=== PATIENT | female | born 1965 | race Caucasian/White ===

== ENCOUNTER 2017-05-18 19:09 | Emergency (ER) | payer MEDICAID ==
[2017-05-18] MEDS ORDERED: PROMETHAZINE HCL 25 MG in 0.9 % SODIUM CHLORIDE 100ML 100 ML IVPB ONE (19:12)
[2017-05-18] MEDS ORDERED: 0.9 % SODIUM CHLORIDE 1000ML 1,000 ML IV SCH (19:15)
--- NOTE | 2017-05-18 19:17 | Emergency Department Record ---
History of Present Illness - General Chief Complaint: Overdose Stated Complaint: OVERDOSE Time Seen by Provider: 05/18/17 19:12 Source: Patient, EMS Mode of Arrival: EMS Limitations: No limitations - History of Present Illness Initial Comments: 51 yo female presents to ED for evaluation following heroin overdose. Patient was found to have shallow respirations after her son called EMS, was given 4 mg of Narcan prior to arrival and awoke with normal respirations. Patient reports chronic back pain and nausea symptoms currently. MD Complaint: Accidental overdose Onset/Timin -: Minutes(s) - [place] Coma Scale Eye Response: (4) Open spontaneously Motor Response: (6) Obeys commands Verbal Response: (5) Oriented [place] Total: 15 Substance Ingested: Heroin - Detail How Overdose Was Discovered: Family/friend present at time Context: Accidental Overdose: Wanted to get high Associated Symptoms: Nausea/vomiting Treatments Prior to Arrival: Narcan - Related Data Previous Rx's Medication Instructions Recorded Alprazolam [Xanax] 1 mg PO BID #5 tab 09/21/15 Hydrocodone/Acetaminophen [[place] 1 tab PO BID PRN #5 tab 09/21/15 10mg/325mg] Allergies Allergy/AdvReac Type Severity Reaction Status Date / Time butorphanol tartrate Allergy Intermediate PT UNSURE Verified 09/21/15 16:23 [From Stadol] OF REACTION codeine Allergy Intermediate PT UNSURE Verified 09/21/15 16:23 OF REACTION nalbuphine HCl [From Nubain] Allergy Intermediate PT UNSURE Verified 09/21/15 16 :23 OF REACTION Penicillins Allergy Intermediate PT UNSURE Verified 09/21/15 16:23 OF REACTION prochlorperazine Allergy Intermediate PT UNSURE Verified 09/21/15 16:23 [From Compazine] OF REACTION prochlorperazine edisylate Allergy Intermediate PT UNSURE Verified 09/21/15 16: 23 [From Compazine] OF REACTION prochlorperazine maleate Allergy Intermediate PT UNSURE Verified 09/21/15 16:23 [From Compazine] OF REACTION sumatriptan [From Imitrex] Allergy Intermediate PT UNSURE Verified 09/21/15 16: 23 OF REACTION sumatriptan succinate Allergy Intermediate PT UNSURE Verified 09/21/15 16:23 [From Imitrex] OF REACTION Review of Systems Constitutional: Denies: Chills, Fever, Malaise, Night sweats Eyes: Denies: Eye discharge, Eye pain ENT: Denies: Congestion, Ear pain, Epistaxis Respiratory: Denies: Cough, Dyspnea Cardiovascular: Denies: Chest pain, Dyspnea on exertion Endocrine: Denies: Fatigue, Heat or cold intolerance Gastrointestinal: Reports: Nausea. Denies: Constipation, Vomiting Genitourinary: Denies: Incontinence, Retention Musculoskeletal: Reports: Back pain. 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" - GI Hx GI Disorders: No - Hx Genitourinary Disorders: No - ENDOCRINE Hx Endocrine Disorders: No - MUSCULOSKELETAL Hx Musculoskeletal Disorders: Yes Hx Arthritis: Yes Comment:: DDD, neuropathy - PSYCH Hx Psych Problems: Yes Hx Anxiety: Yes - HEMATOLOGY/ONCOLOGY Hx Hematology/Oncology Disorders: No Family Medical History Hx Heart Disease: Father, Brother/Sister Physical Exam - General General Appearance: Alert, Oriented x3, Cooperative, No acute distress Limitations: No limitations - Head Head exam: Atraumatic, Normocephalic, Normal inspection Head exam detail: negative: Abrasion, Contusion, Kay's sign, General tenderness, Hematoma, Laceration - Eye Eye exam: Normal appearance. negative: Conjunctival injection, Periorbital swelling, Periorbital tenderness, Scleral icterus - ENT Ear exam: negative: Auricular hematoma, Auricular trauma Nasal Exam: negative: Active bleeding, Discharge, Dried blood, Foreign body Mouth exam: negative: Drooling, Laceration, Muffled voice, Tongue elevation Teeth exam: Other (All teeth removed previously) - Neck Neck exam: Normal inspection. negative: Meningismus, Tenderness - Respiratory Respiratory exam: Normal lung sounds bilaterally. negative: Rales, Respiratory distress, Rhonchi, Stridor - Cardiovascular Cardiovascular Exam: Regular rate, Normal rhythm, Normal heart sounds - GI/Abdominal GI/Abdominal exam: Soft. negative: Rebound, Rigid, Tenderness - Rectal Rectal exam: Deferred - exam: Deferred - Extremities Extremities exam: Normal inspection. negative: Pedal edema, Tenderness - Back Back exam: Denies: CVA tenderness (R), CVA tenderness (L) - Neurological Neurological exam: Alert, Normal gait, Oriented X3 - Psychiatric Psychiatric exam: Flat affect, Normal mood - Skin Skin exam: Normal color. negative: Abrasion Type of lesion: negative: abrasion Course - Reevaluation(s) Reevaluation #1: 05/18/17 19:49 Patient's family has arrived to the bedside, patient reports that she wants to leave AMA. 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 Benefit of further observation to exclude a recurrence of respiratory depression and was discussed with the patient and her family members. Patient verbalizes understanding of the benefit of further observation and the risk of leaving AMA , is AOx3 and has the capacity to make rational decisions. All risks and benefits were reviewed with the patient with family members at the bedside, and they are in agreement with the patient's decision to leave AMA as well. Patient will be released per her choice with family members. Medical Decision Making - Lab Data Result diagrams: 05/18/17 19:20 05/18/17 19:20 Disposition Disposition: Discharge Clinical Impression: Heroin overdose Qualifiers: Encounter type: initial encounter Injury intent: accidental or unintentional Qualified Code(s): T40.1X1A - Poisoning by heroin, accidental (unintentional), initial encounter Disposition: Against Medical Advice Condition: (3) Guarded Instructions: Narcotic Abuse (ED) Additional Instructions: Return to ED if your symptoms worsen or if you have any concerns. Do not use heroin as the drug may result in . Follow-up with your family doctor in 1-3 days without fail. Forms: Patient Portal Access Time of Disposition: 19:58 Quality - Quality Measures Quality Measures: N/A - Blood Pressure Screening Does Patient Have Any of the Following: No Blood Pressure Classification: Pre-Hypertensive BP Reading Systolic Measurement: 149 Diastolic Measurement: 85 Screening for High Blood Pressure: < Pre-Hypertensive BP, F/U Documented > [ G8950] Pre-Hypertensive Follow-up Interventions: Referral to alternative/primary care provider.
[2017-05-18 19:30] LABS: BASO % 0.2 % (0-6); EOS % 2.2 % (0-6); GRAN % 55.8 % (47-80); HEMATOCRIT 41.1 % (35.0-47.0); HEMOGLOBIN 13.9 gm/dl (11.6-16.0); LYMPH % 35.1 % (16-45); MEAN CELL VOLUME 93.6 fl (81-97); MEAN CORPUSCULAR HEMOGLOBIN 31.7 pg (27-33); MEAN CORPUSCULAR HGB CONC 33.8 g/dl (32-36); MEAN PLATELET VOLUME 9.3 fl (7.4-10.4); MONO % 6.7 % (0-9); PLATELET COUNT 290 K/uL (130-400); RED BLOOD COUNT 4.39 M/uL (3.80-5.40); RED CELL DISTRIBUTION WIDTH 14.5 % (11.5-14.5); WHITE BLOOD COUNT W/O DIFF 8.6 K/uL (4.2-12.2)
[2017-05-18 19:38] LABS: BLOOD UREA NITROGEN 16 mg/dL (6-20); CREATININE 0.7 mg/dL (0.5-0.9); EST GLOMERULAR FILTRATION RATE > 60 mL/min
[2017-05-18 19:41] LABS: GLUCOSE,RANDOM 113 mg/dL (74-109)
[2017-05-18 19:43] LABS: ALT/SGPT 18 U/L (<33)
[2017-05-18 19:44] LABS: ALB/GLOB RATIO 1.3 (1.1-1.8); ALKALINE PHOSPHATASE 66 U/L (35-104); AST/SGOT 19 U/L (10.0-35.0)
== END 2017-05-18 20:15 | disposition left against medical advice (07) ==
LOC: ER 19:09
DX: T40.1X1A Poisoning by heroin, accidental (unintentional), initial encounter (principal); R11.0 Nausea; I10 Essential (primary) hypertension; F17.210 Nicotine dependence, cigarettes, uncomplicated
CPT/HCPCS: 80053; 85025; 96365; 99284; J2550; J7030

== ENCOUNTER 2017-05-31 17:02 | Emergency (ER) | payer MEDICAID ==
[2017-05-31] MEDS ORDERED: KETOROLAC 30 MG/ML VIAL IVP ONE (17:48)
[2017-05-31] MEDS ORDERED: HYDROCODONE/APAP 7.5/325MG TABLET PO ONE (17:48)
[2017-05-31] MEDS ORDERED: ACETAMINOPHEN 1,000 MG/100 ML BTL IVPB ONE (17:48)
[2017-05-31] MEDS ORDERED: ALPRAZOLAM 0.25 MG TABLET PO ONE (17:58)
--- NOTE | 2017-05-31 17:58 | Emergency Department Record ---
History of Present Illness - General Chief Complaint: Chest Pain Stated Complaint: CHEST /ABDOMINAL PAIN Time Seen by Provider: 05/31/17 17:44 Source: Patient Mode of Arrival: Ambulatory Limitations: No limitations - History of Present Illness Initial Comments: 51 yo female presents with diffuse pain over the chest and back that is worsening since having CPR recently for a drug overdose. The patient was using recreational heroin when she stopped breathing. She received CPR. She reports severe pain since that time. No syncope. No other new pains or injuries. She has pain with any moving or breathing. No cough, hemoptysis, or neck pain. MD Complaint: Chest pain Onset/Timin -: Days(s) Onset: Other Pain Location: Substernal, Left chest Severity: Moderate Severity scale (1-10): 10 Quality: Aching, Heaviness Consistency: Constant, Getting worse Improves With: Rest Worsens With: Inspiration, Movement, Palpation Context: Trauma/injury - Related Data Previous Rx's Medication Instructions Recorded Alprazolam [Xanax] 1 mg PO BID #5 tab 09/21/15 Allergies Allergy/AdvReac Type Severity Reaction Status Date / Time butorphanol tartrate Allergy Intermediate PT UNSURE Verified 05/31/17 17:32 [From Stadol] OF REACTION codeine Allergy Intermediate PT UNSURE Verified 05/31/17 17:32 OF REACTION nalbuphine HCl [From Nubain] Allergy Intermediate PT UNSURE Verified 05/31/17 17 :32 OF REACTION Penicillins Allergy Intermediate PT UNSURE Verified 05/31/17 17:32 OF REACTION prochlorperazine Allergy Intermediate PT UNSURE Verified 05/31/17 17:32 [From Compazine] OF REACTION prochlorperazine edisylate Allergy Intermediate PT UNSURE Verified 05/31/17 17: 32 [From Compazine] OF REACTION prochlorperazine maleate Allergy Intermediate PT UNSURE Verified 05/31/17 17:32 [From Compazine] OF REACTION sumatriptan [From Imitrex] Allergy Intermediate PT UNSURE Verified 05/31/17 17: 32 OF REACTION sumatriptan succinate Allergy Intermediate PT UNSURE Verified 05/31/17 17:32 [From Imitrex] OF REACTION ketorolac [From Toradol] Allergy HYPERSENSIT Verified 05/31/17 17:32 IV[facility] Travel Screening - Travel/Exposure Within Last 30 Days Have you traveled within the last 30 days?: No - Travel/Exposure Within Last Year Have you traveled outside the [place] in the last year?: No - Additonal Travel Details Have you been exposed to anyone with a communicable illness?: No - Travel Symptoms Symptom Screening: None Review of Systems Constitutional: Denies: Chills, Fever, Malaise, Weakness Eyes: Denies: Eye discharge ENT: Denies: Congestion, Throat pain Respiratory: Denies: Cough, Dyspnea, Hemoptysis, Stridor, Wheezes Cardiovascular: Reports: Chest pain. Denies: Arrhythmia, Dyspnea on exertion, Edema, Palpitations, Syncope Endocrine: Denies: Fatigue, Polydipsia, Polyuria Gastrointestinal: Denies: Abdominal pain, Diarrhea, Nausea, Vomiting Musculoskeletal: Reports: As per HPI, Back pain, Myalgia Skin: Denies: Bruising, Change in color, Rash Neurological: Denies: Confusion, Headache, Numbness, Tingling, Tremors, Vertigo , Weakness Psychiatric: Denies: Anxiety Hematological/Lymphatic: Denies: Blood Clots, Easy bleeding, Easy bruising, Swollen glands Past Medical History - SOCIAL HISTORY Smoking Status: Current every day smoker Alcohol Use: Rare Drug Use: Occasional Drug Use Detail:: Marijuana, Opiates - RESPIRATORY Hx Respiratory Disorders: No - CARDIOVASCULAR Hx Cardio Disorders: Yes Hx Deep Vein Thrombosis: Yes Hx Hypertension: Yes Comment:: vasculitis, ttp coma for 2 weeks - NEURO Hx Neuro Disorders: Yes 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" - GI Hx GI Disorders: No - Hx Genitourinary Disorders: No - ENDOCRINE Hx Endocrine Disorders: No Hx Diabetes: No Hx Thyroid Disease: No - MUSCULOSKELETAL Hx Musculoskeletal Disorders: Yes Hx Arthritis: Yes Comment:: DDD, neuropathy - PSYCH Hx Psych Problems: Yes Hx Anxiety: Yes - HEMATOLOGY/ONCOLOGY Hx Hematology/Oncology Disorders: No Family Medical History Any Significant Family History?: Yes Hx Heart Disease: Father, Brother/Sister Physical Exam - General General Appearance: Alert, Oriented x3, Cooperative, No acute distress Limitations: No limitations - Head Head exam: Atraumatic, Normocephalic, Normal inspection - Eye Eye exam: Normal appearance, PERRL. negative: Conjunctival injection, Scleral icterus - ENT ENT exam: Normal exam, Mucous membranes moist Ear exam: Normal external inspection Nasal Exam: Normal inspection Mouth exam: Normal external inspection - Neck Neck exam: Normal inspection, Full ROM. negative: Tenderness - Respiratory Respiratory exam: Normal lung sounds bilaterally, Chest wall tenderness. negative: Accessory muscle use, Decreased breath sounds, Prolonged expiratory, Rales, Respiratory distress, Rhonchi, Stridor, Wheezes - Cardiovascular Cardiovascular Exam: Regular rate, Normal rhythm, Normal heart sounds Peripheral Pulses: 2+: Radial (R), Radial (L) - GI/Abdominal GI/Abdominal exam: Soft. negative: Distended, Guarding, Rebound, Rigid, Tenderness - Rectal Rectal exam: Deferred - exam: Deferred - Extremities Extremities exam: Normal inspection, Full ROM, Normal capillary refill. negative: Joint swelling, Pedal edema, Tenderness Image of Full Body: 1 - tender, normal inspection, tender T spine, 2 - tender to palpation - Back Back exam: Reports: Normal inspection, Full ROM. Denies: CVA tenderness (R), CVA tenderness (L), Muscle spasm, Paraspinal tenderness, Rash noted, Tenderness , Vertebral tenderness - Neurological Neurological exam: Alert, Normal gait, Oriented X3, Reflexes normal. negative: Motor sensory deficit - Psychiatric Psychiatric exam: Normal affect, Normal mood - Skin Skin exam: Dry, Intact, Normal color, Warm Course Vital Signs 05/31/17 17:09 Temperature 98.4 F Pulse Rate 89 Respiratory 18 Rate Blood Pressure 136/93 Pulse Ox 95 - Reevaluation(s) Reevaluation #1: 05/31/17 17:53 EKG 17:14 NSR, rate 97, intervals normal, axis L, ST normal. 05/31/17 18:24 The CBC was reviewed No acute changes. 05/31/17 18:52 CT was changed to a [place] Ct scan due to CR of 1.3 with GFR of 46 05/31/17 18:52 The case was signed out to Dr Ulloa for review of results Medical Decision Making - Lab Data Result diagrams: 05/31/17 18:07 12 18:07 Disposition Clinical Impression: Contusion of rib on right side, Back strain, Hypokalemia Condition: (1) Good Instructions: Rib Contusion (ED), Thoracic Back Strain (ED) Additional Instructions: Call your pain specialist tomorrow for close follow up Return if worse, short of breath or any new concerns. Forms: Patient Portal Access Quality - Blood Pressure Screening Does Patient Have Any of the Following: No Blood Pressure Classification: Hypertensive Reading Systolic Measurement: 136 Diastolic Measurement: 93
[2017-05-31 18:16] LABS: BASO % 0.3 % (0-6); EOS % 0.4 % (0-6); GRAN % 74.6 % (47-80); HEMATOCRIT 44.3 % (35.0-47.0); HEMOGLOBIN 15.2 gm/dl (11.6-16.0); LYMPH % 18.1 % (16-45); MEAN CELL VOLUME 90.2 fl (81-97); MEAN CORPUSCULAR HGB CONC 34.3 g/dl (32-36); MEAN PLATELET VOLUME 9.8 fl (7.4-10.4); MONO % 6.6 % (0-9); PLATELET COUNT 379 K/uL (130-400); RED BLOOD COUNT 4.91 M/uL (3.80-5.40); WHITE BLOOD COUNT W/O DIFF 11.1 K/uL (4.2-12.2)
[2017-05-31 18:29] LABS: CREATININE 1.3 mg/dL (0.5-0.9)
[2017-05-31] MEDS ORDERED: SOD CHLOR 0.9% WITH KCL 40MEQ 40 MEQ/1,000 ML IV.SOLN IV ONE (18:42)
[2017-05-31] MEDS ORDERED: POTASSIUM BICARB./CIT AC 25 MEQ EFF.TAB PO STA (18:43)
[2017-05-31] MEDS ORDERED: 0.9 % SODIUM CHLORIDE 1,000 ML BAG IV ONE (18:52)
--- NOTE | 2017-05-31 19:54 | Emergency Department Record ---
History of Present Illness - General Chief Complaint: Chest Pain Stated Complaint: CHEST /ABDOMINAL PAIN Time Seen by Provider: 05/31/17 17:44 Source: Patient Mode of Arrival: Ambulatory Limitations: No limitations - History of Present Illness Onset/Timin -: Days(s) Onset: Other Pain Location: Substernal, Left chest Severity: Moderate Severity scale (1-10): 10 Quality: Aching, Heaviness Consistency: Constant, Getting worse Improves With: Rest Worsens With: Inspiration, Movement, Palpation Context: Trauma/injury - Related Data Previous Rx's Medication Instructions Recorded Alprazolam [Xanax] 1 mg PO BID #5 tab 09/21/15 Allergies Allergy/AdvReac Type Severity Reaction Status Date / Time butorphanol tartrate Allergy Intermediate PT UNSURE Verified 05/31/17 17:32 [From Stadol] OF REACTION codeine Allergy Intermediate PT UNSURE Verified 05/31/17 17:32 OF REACTION nalbuphine HCl [From Nubain] Allergy Intermediate PT UNSURE Verified 05/31/17 17 :32 OF REACTION Penicillins Allergy Intermediate PT UNSURE Verified 05/31/17 17:32 OF REACTION prochlorperazine Allergy Intermediate PT UNSURE Verified 05/31/17 17:32 [From Compazine] OF REACTION prochlorperazine edisylate Allergy Intermediate PT UNSURE Verified 05/31/17 17: 32 [From Compazine] OF REACTION prochlorperazine maleate Allergy Intermediate PT UNSURE Verified 05/31/17 17:32 [From Compazine] OF REACTION sumatriptan [From Imitrex] Allergy Intermediate PT UNSURE Verified 05/31/17 17: 32 OF REACTION sumatriptan succinate Allergy Intermediate PT UNSURE Verified 05/31/17 17:32 [From Imitrex] OF REACTION ketorolac [From Toradol] Allergy HYPERSENSIT Verified 05/31/17 17:32 IVITY Travel Screening - Travel/Exposure Within Last 30 Days Have you traveled within the last 30 days?: No - Travel/Exposure Within Last Year Have you traveled outside the [place] in the last year?: No - Additonal Travel Details Have you been exposed to anyone with a communicable illness?: No - Travel Symptoms Symptom Screening: None Review of Systems Constitutional: Denies: Chills, Fever, Malaise, Weakness Eyes: Denies: Eye discharge ENT: Denies: Congestion, Throat pain Respiratory: Denies: Cough, Dyspnea, Hemoptysis, Stridor, Wheezes Cardiovascular: Reports: Chest pain. Denies: Arrhythmia, Dyspnea on exertion, Edema, Palpitations, Syncope Endocrine: Denies: Fatigue, Polydipsia, Polyuria Gastrointestinal: Denies: Abdominal pain, Diarrhea, Nausea, Vomiting Musculoskeletal: Reports: As per HPI, Back pain, Myalgia Skin: Denies: Bruising, Change in color, Rash Neurological: Denies: Confusion, Headache, Numbness, Tingling, Tremors, Vertigo , Weakness Psychiatric: Denies: Anxiety Hematological/Lymphatic: Denies: Blood Clots, Easy bleeding, Easy bruising, Swollen glands Past Medical History - SOCIAL HISTORY Smoking Status: Current every day smoker Alcohol Use: Rare Drug Use: Occasional Drug Use Detail:: Marijuana, Opiates - RESPIRATORY Hx Respiratory Disorders: No - CARDIOVASCULAR Hx Cardio Disorders: Yes Hx Deep Vein Thrombosis: Yes Hx Hypertension: Yes Comment:: vasculitis, ttp coma for 2 weeks - NEURO Hx Neuro Disorders: Yes 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" - GI Hx GI Disorders: No - Hx Genitourinary Disorders: No - ENDOCRINE Hx Endocrine Disorders: No Hx Diabetes: No Hx Thyroid Disease: No - MUSCULOSKELETAL Hx Musculoskeletal Disorders: Yes Hx Arthritis: Yes Comment:: DDD, neuropathy - PSYCH Hx Psych Problems: Yes Hx Anxiety: Yes - HEMATOLOGY/ONCOLOGY Hx Hematology/Oncology Disorders: No Family Medical History Any Significant Family History?: Yes Hx Heart Disease: Father, Brother/Sister Physical Exam - General Limitations: No limitations Course Vital Signs 05/31/17 05/31/17 17:09 19:31 Temperature 98.4 F Pulse Rate 89 Pulse Rate [ 81 Complex Care Nurse ] Respiratory 18 16 Rate Blood Pressure 136/93 Blood Pressure 123/95 [Left Arm] Pulse Ox 95 99 - Reevaluation(s) Reevaluation #1: 05/31/17 19:51 CT Chest w/o Contrast: Minimally displaced fracture left 5th rib distally Minimally displaced rib fracture right 2nd distally Age indeterminate fracture 4th rib fracture 3 mm nodule apex left lung Atelectasis Patient was updated on all results including the need for follow-up re: lung nodule, patient's potassium is still infusing. Reevaluation #2: 05/31/17 22:54 Patient reassessed and is sleeping, updated on all results and appears stable for discharge now that her Potassium has completed infusion. Medical Decision Making - Lab Data Result diagrams: 05/31/17 18:07 05/31/17 18:07 Lab Results 05/31/17 05/31/17 Range/Units 18:07 18:07 WBC 11.1 (4.2-12.2) K/uL RBC 4.91 (3.80-5.40) M/uL Hgb 15.2 (11.6-16.0) gm/dl Hct 44.3 (35.0-47.0) % MCV 90.2 (81-97) fl MCH 31.0 (27-33) pg MCHC 34.3 (32-36) g/dl RDW 14.0 (11.5-14.5) % Plt Count 379 (130-400) K/uL MPV 9.8 (7.4-10.4) fl Gran % 74.6 (47-80) % Lymphocytes % 18.1 (16-45) % Monocytes % 6.6 (0-9) % Eosinophils % 0.4 (0-6) % Basophils % 0.3 (0-6) % Sodium 141 (136-145) mmol/L Potassium 2.6 L* (3.4-4.5) mmol/L Chloride 99 (98-107) mmol/L Carbon Dioxide 23.0 (22-29) mmol/L Anion Gap 19.0 H (7-16) BUN 30 H (6-20) mg/dL Creatinine 1.3 H (0.5-0.9) mg/dL Estimated GFR 46 mL/min Random Glucose 102 (74-109) mg/dL Calcium 9.7 (8.6-10.0) mg/dL Disposition Disposition: Discharge Clinical Impression: Hypokalemia Contusion of rib on right side Qualifiers: Encounter type: initial encounter Qualified Code(s): S20.211A - Contusion of right front wall of thorax, initial encounter Back strain Qualifiers: Encounter type: initial encounter Qualified Code(s): S39.012A - Strain of muscle, fascia and tendon of lower back, initial encounter Rib fracture Qualifiers: Encounter type: initial encounter Rib fracture type: multiple ribs Fracture type: closed Laterality: bilateral Qualified Code(s): S22.43XA - Multiple fractures of ribs, bilateral, initial encounter for closed fracture Disposition: Home, Self-Care Condition: (2) Stable Instructions: Rib Fracture (ED) Additional Instructions: Call your pain specialist tomorrow for close follow up Follow-up with your family doctor for re-imaging of your chest lesion in 2-3 months. Return if worse, short of breath or any new concerns. Forms: Patient Portal Access Time of Disposition: 22:55 Quality - Quality Measures Quality Measures: N/A - Blood Pressure Screening Does Patient Have Any of the Following: No Blood Pressure Classification: Hypertensive Reading Systolic Measurement: 136 Diastolic Measurement: 93 Screening for High Blood Pressure: < First Hypertensive BP, F/U Documented > [ G8950] First Hypertensive Follow-up Interventions: Referral to alternative/primary care provider.
--- NOTE | 2017-06-01 09:38 | CT SCAN REPORT ---
EXAM: CT OF THE CHEST WITHOUT CONTRAST HISTORY: CPR PERFORMED ON PATIENT ONE WEEK AGO FOR DRUG OVERDOSE. SEVERE BILATERAL CHEST PAIN. TECHNIQUE: Routine noncontrast CT examination of the chest was obtained. Comparison: None. FINDINGS: The heart is not enlarged. There is minor atherosclerosis of the thoracic aorta without focal aneurysmal dilatation. No mediastinal or hilar mass/lymphadenopathy is seen. There is no evidence of mediastinal hematoma. There is mild dependent atelectasis within the posterolateral aspect of the right lower lobe. Minor linear scarring versus atelectasis is scattered within the anterolateral right base and to a lesser degree the lingula. There is possible minimal pleural thickening versus atelectasis in the lateral mid to lower right hemithorax. No pleural or pericardial effusion. No pneumothorax. There is a calcified granuloma within the lateral left lung apex measuring 7 mm. A tiny calcified granuloma measuring 3 mm is also demonstrated within the anterior inferior aspect of the right upper lobe. A tiny calcified granuloma is also present in the left apex. There is a noncalcified nodule in the left upper lobe as seen on image 20 of 78. This measures 3 mm. This is nonspecific , but likely post inflammatory. If there is a smoking history, follow-up CT chest in twelve months would be recommended. The lungs and pleural spaces are otherwise clear. There is an incompletely imaged well circumscribed hypodense left adrenal mass measuring 3.6 x 3.6 cm. This has a density of 1 Hounsfield unit. 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 Comparison to prior examinations if any exist is recommended. If none exist, further evaluation with MRI examination would be of benefit. There is minor thickening of the medial aspect of the right adrenal gland consistent with a developmental variant or tiny adenoma. There are degenerative changes scattered throughout the visualized spine. No convincing spinal nor sternal fracture. There is a minimally displaced acute fracture of the anterolateral left fifth rib and a minimally displaced oblique fracture of the distal right second rib. There is an age indeterminate fracture deformity of the anterolateral right fourth rib. No other definite rib fracture is seen nor destructive bone lesion. IMPRESSION: 1. ACUTE MINIMALLY DISPLACED FRACTURE OF THE ANTEROLATERAL LEFT FIFTH RIB AND ACUTE [place] MINIMALLY DISPLACED FRACTURE OF THE DISTAL RIGHT SECOND RIB. AGE INDETERMINATE FRACTURE DEFORMITY OF THE ANTEROLATERAL RIGHT FOURTH RIB. NO OTHER ACUTE OSSEOUS ABNORMALITY. 2. HEALED GRANULOMATOUS DISEASE IN EACH LUNG. 3 MM NONCALCIFIED NODULE IN THE LEFT UPPER LOBE IS LIKELY POST INFLAMMATORY. IF THERE IS A SMOKING HISTORY OR HISTORY OF MALIGNANCY, FOLLOW-UP CT CHEST EXAMINATION IN TWELVE MONTHS IS RECOMMENDED. OTHERWISE NO FURTHER EVALUATION IS NECESSARY. 3. 3.6 CM INCOMPLETELY IMAGED LOW DENSITY LEFT ADRENAL GLAND MASS, LIKELY AN ADENOMA. PLEASE SEE ABOVE DISCUSSION. JOB NUMBER: [id number] MTDD
== END 2017-05-31 23:39 | disposition home or self-care (01) ==
LOC: ER 17:02
DX: S20.211A Contusion of right front wall of thorax, initial encounter (principal); S39.012A Strain of muscle, fascia and tendon of lower back, initial encounter; S22.43XA Multiple fractures of ribs, bilateral, initial encounter for closed fracture; E87.6 Hypokalemia; I10 Essential (primary) hypertension; F17.210 Nicotine dependence, cigarettes, uncomplicated; X50.3XXA Overexertion from repetitive movements, initial encounter
CPT/HCPCS: 71250; 80048; 85025; 93005; 93010; 96365; 96366; 96375; 99284; J7030

== ENCOUNTER 2017-10-27 03:53 | Emergency (ER) | payer MEDICAID ==
--- NOTE | 2017-10-27 04:09 | Emergency Department Record ---
History of Present Illness - General Stated Complaint: OVERDOSE Time Seen by Provider: 10/27/17 03:56 Source: Patient, EMS Mode of Arrival: EMS Limitations: No limitations - History of Present Illness Initial Comments: 52 yo female presents to ED for evaluation of possible overdose. Per EMS, they were called as the the patient was "blue, not breathing". Patient was given Narcan 2 mg IV with return of spontaneous respirations, awoke and was refusing treatment on scene. Patient reportedly has been taking benzodiazipine and narcotic pain medication and may have accidentally overdosed. Upon arrival to the ED, the patient is refusing treatment and evaluation stating "I want to go home now". Complaint: Accidental overdose -: Unknown - Juanjo Coma Scale Eye Response: (4) Open spontaneously Motor Response: (6) Obeys commands Verbal Response: (5) Oriented Juanjo Total: 15 - Detail How Overdose Was Discovered: Family/friend present at time Context: Accidental Overdose: Uncertain what happened Treatments Prior to Arrival: Narcan - Related Data Previous Rx's Medication Instructions Recorded Alprazolam [Xanax] 1 mg PO BID #5 tab 09/21/15 Allergies Allergy/AdvReac Type Severity Reaction Status Date / Time butorphanol tartrate Allergy Intermediate PT UNSURE Verified 05/31/17 17:32 [From Stadol] OF REACTION codeine Allergy Intermediate PT UNSURE Verified 05/31/17 17:32 OF REACTION nalbuphine HCl [From Nubain] Allergy Intermediate PT UNSURE Verified 05/31/17 17 :32 OF REACTION Penicillins Allergy Intermediate PT UNSURE Verified 05/31/17 17:32 OF REACTION prochlorperazine Allergy Intermediate PT UNSURE Verified 05/31/17 17:32 [From Compazine] OF REACTION prochlorperazine edisylate Allergy Intermediate PT UNSURE Verified 05/31/17 17: 32 [From Compazine] OF REACTION prochlorperazine maleate Allergy Intermediate PT UNSURE Verified 05/31/17 17:32 [From Compazine] OF REACTION sumatriptan [From Imitrex] Allergy Intermediate PT UNSURE Verified 05/31/17 17: 32 OF REACTION sumatriptan succinate Allergy Intermediate PT UNSURE Verified 05/31/17 17:32 [From Imitrex] OF REACTION ketorolac [From Toradol] Allergy HYPERSENSIT Verified 05/31/17 17:32 IVITY Review of Systems Constitutional: Denies: Chills, Fever, Malaise, Night sweats Eyes: Denies: Eye discharge, Eye pain ENT: Denies: Congestion, Ear pain, Epistaxis Respiratory: Denies: Cough, Dyspnea Cardiovascular: Reports: Chest pain. Denies: Dyspnea on exertion Endocrine: Denies: Fatigue, Heat or cold intolerance Gastrointestinal: Denies: Abdominal pain, Nausea, Vomiting Genitourinary: Denies: Incontinence, Retention Musculoskeletal: Denies: Arthralgia, Back pain Skin: Denies: Bruising, Change in color Neurological: Denies: Abnormal gait, Confusion, Headache, Seizure Psychiatric: Denies: Anxiety Hematological/Lymphatic: Denies: Anemia, Blood Clots Past Medical History - SOCIAL HISTORY Smoking Status: Current every day smoker Drug Use: Occasional Drug Use Detail:: Marijuana, Opiates - RESPIRATORY Hx Respiratory Disorders: No - CARDIOVASCULAR Hx Cardio Disorders: Yes Hx Deep Vein Thrombosis: Yes Hx Hypertension: Yes Comment:: vasculitis, ttp coma for 2 weeks - NEURO Hx Neuro Disorders: Yes Comment:: "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" - GI Hx GI Disorders: No - Hx Genitourinary Disorders: No - ENDOCRINE Hx Endocrine Disorders: No Hx Diabetes: No Hx Thyroid Disease: No - MUSCULOSKELETAL Hx Musculoskeletal Disorders: Yes Hx Arthritis: Yes Comment:: DDD, neuropathy - PSYCH Hx Psych Problems: Yes Hx Anxiety: Yes - HEMATOLOGY/ONCOLOGY Hx Hematology/Oncology Disorders: No Family Medical History Hx Heart Disease: Father, Brother/Sister Physical Exam - General General Appearance: Alert, Oriented x3, No acute distress Limitations: No limitations - Head Head exam: Atraumatic, Normocephalic, Normal inspection Head exam detail: negative: Abrasion, Contusion, Kay's sign, General tenderness, Hematoma, Laceration - Eye Eye exam: Normal appearance. negative: Conjunctival injection, Periorbital swelling, Periorbital tenderness, Scleral icterus - ENT Ear exam: negative: Auricular hematoma, Auricular trauma Nasal Exam: negative: Active bleeding, Discharge, Dried blood, Foreign body Mouth exam: negative: Drooling, Laceration, Muffled voice, Tongue elevation Teeth exam: Other (Adentulous) - Neck Neck exam: Normal inspection. negative: Meningismus, Tenderness - Respiratory Respiratory exam: Normal lung sounds bilaterally. negative: Rales, Respiratory distress, Rhonchi, Stridor - Cardiovascular Cardiovascular Exam: Regular rate, Normal rhythm, Normal heart sounds - GI/Abdominal GI/Abdominal exam: Soft. negative: Rebound, Rigid, Tenderness - Rectal Rectal exam: Deferred - exam: Deferred - Extremities Extremities exam: Normal inspection. negative: Pedal edema, Tenderness - Back Back exam: Denies: CVA tenderness (R), CVA tenderness (L) - Neurological Neurological exam: Alert, Oriented X3. negative: Motor sensory deficit - Psychiatric Psychiatric exam: Agitated - Skin Skin exam: Normal color. negative: Abrasion Type of lesion: negative: abrasion Course - Reevaluation(s) Reevaluation #1: 10/27/17 04:01 Patient was seen and examined, she is alert and oriented x 3 stating "I want to leave immediately". I did explain to the patient that per EMS she was not breathing and CPR was performed prior to receiving Narcan. I did explain to the patient that once Narcan wears off, her symptoms may return and that she may stop breathing resulting in , worsening of her condition, or permanent impairment. Benefit of 3-hour observation in the ED to monitor her respiratory status was offered, patient continues to state that she wants to leave immediately. Patient answers all questions appropriately, verbalizes understanding of all risks and benefits, and reports that she still wants to leave the hospital immediately. Patient appears to have the capacity to make rational decisions based on my examination without evidence for involuntary treatment. Will await arrival of her son and discuss all risks/benefits with her again when he arrives. Previous records were reviewed, patient has a history of overdose in 05/15 with similar presentation, wanted to leave immediately following arrival to the ED similar to phuongleonarda's visit in ED. Reevaluation #2: 10/27/17 04:19 MAPS was reviewed, patient's overdose risk score is 640 (high risk). In reviewing the patient's prescribing physicians, Dr. Sg Oliver is listed. On-call provider for Dr. Oliver ([facility], [place], [place]) was paged for consultation. Reevaluation #3: 10/27/17 04:24 Case was discussed [address] Dr[address] Oliver, discussed that the patient has presented to [facility] for opiate OD twice in 6 months, continues to refuse treatment and my concerns for continued risk for overdose were discussed. Dr. Oliver reports that he will review the patient's record and discuss future treatment with the patient at her next appointment. Reevaluation #4: 10/27/17 05:02 Patient was unable to reach her son, her neighbor is here to pick her up. I did review risks and benefits of leaving AMA again, patient continues to verbalize that she wants to leave at this time. Patient appears stable for discharge AMA at this time. Disposition Disposition: Other (AMA) Clinical Impression: Overdose Qualifiers: Encounter type: initial encounter Injury intent: accidental or unintentional Qualified Code(s): T50.901A - Poisoning by unspecified drugs, medicaments and biological substances, accidental (unintentional), initial encounter Disposition: Against Medical Advice Condition: (2) Stable Instructions: Adult Overdose (ED) Additional Instructions: Return to ED if your symptoms worsen or if you have any concerns. Follow-up with your family doctor in 1-3 days as directed. Forms: Patient Portal Access Time of Disposition: 05:05 Quality - Quality Measures Quality Measures: N/A - Blood Pressure Screening Does Patient Have Any of the Following: No Blood Pressure Classification: Hypertensive Reading Systolic Measurement: 146 Diastolic Measurement: 93 Screening for High Blood Pressure: < First Hypertensive BP, F/U Documented > [ G8950] First Hypertensive Follow-up Interventions: Referral to alternative/primary care provider.
== END 2017-10-27 05:03 | disposition left against medical advice (07) ==
LOC: ER 03:53
DX: T42.4X1A Poisoning by benzodiazepines, accidental (unintentional), initial encounter (principal); T40.601A Poisoning by unspecified narcotics, accidental (unintentional), initial encounter; I10 Essential (primary) hypertension; F17.210 Nicotine dependence, cigarettes, uncomplicated; Y92.009 Unspecified place in unspecified non-institutional (private) residence as the place of occurrence of the external cause
CPT/HCPCS: 99284

== ENCOUNTER 2018-04-17 01:04 | Emergency (ER) | payer MEDICAID ==
[2018-04-17 01:18] LABS: HEMATOCRIT 35.7 % (35.0-47.0); HEMOGLOBIN 11.4 gm/dl (11.6-16.0); MEAN CELL VOLUME 96.2 fl (81-97); MEAN CORPUSCULAR HEMOGLOBIN 30.7 pg (27-33); MEAN CORPUSCULAR HGB CONC 31.9 g/dl (32-36); MEAN PLATELET VOLUME 8.9 fl (7.4-10.4); PLATELET COUNT 307 K/uL (130-400); RED BLOOD COUNT 3.71 M/uL (3.80-5.40)
--- NOTE | 2018-04-17 01:21 | Emergency Department Record ---
History of Present Illness - General Chief Complaint: Overdose Stated Complaint: OVERDOSE Time Seen by Provider: 04/17/18 01:09 Source: EMS Mode of Arrival: EMS Limitations: No limitations - History of Present Illness Initial Comments: The patient is here due to accidentally overdosing at home a half hour ago. She was home having some tequila and was then found at home not breathing by family. EMS was called. Prior to EMS responding the patient received 2 doses of 4 mg of Narcan intranasally. She then slowly woke up for EMS who was then on scene. There was no hx of any CPR being performed and the patient was never pulseless or cyanotic. The patient presently denies overdosing or using IV drugs. She states she was at home having a drink and then the next thing she remembers is EMS working over her. This visit today is her 3rd visit in 11 months for overdosing. She did leave the ED AMA on both of those 2 occasions. The patient denies any recent illnesses or injuries. MD Complaint: Accidental overdose Onset/Timin -: Minutes(s) - Juanjo Coma Scale Eye Response: (4) Open spontaneously Motor Response: (6) Obeys commands Verbal Response: (5) Oriented Juanjo Total: 15 - Detail Intent: Unwilling to say How Overdose Was Discovered: Family/friend present at time Context: Accidental Overdose: Uncertain what happened - Related Data Previous Rx's Medication Instructions Recorded Alprazolam [Xanax] 1 mg PO BID #5 tab 09/21/15 Allergies Allergy/AdvReac Type Severity Reaction Status Date / Time butorphanol tartrate Allergy Intermediate PT UNSURE Verified 05/31/17 17:32 [From Stadol] OF REACTION codeine Allergy Intermediate PT UNSURE Verified 05/31/17 17:32 OF REACTION nalbuphine HCl [From Nubain] Allergy Intermediate PT UNSURE Verified 05/31/17 17 :32 OF REACTION Penicillins Allergy Intermediate PT UNSURE Verified 05/31/17 17:32 OF REACTION prochlorperazine Allergy Intermediate PT UNSURE Verified 05/31/17 17:32 [From Compazine] OF REACTION prochlorperazine edisylate Allergy Intermediate PT UNSURE Verified 05/31/17 17: 32 [From Compazine] OF REACTION prochlorperazine maleate Allergy Intermediate PT UNSURE Verified 05/31/17 17:32 [From Compazine] OF REACTION sumatriptan [From Imitrex] Allergy Intermediate PT UNSURE Verified 05/31/17 17: 32 OF REACTION sumatriptan succinate Allergy Intermediate PT UNSURE Verified 05/31/17 17:32 [From Imitrex] OF REACTION ketorolac [From Toradol] Allergy HYPERSENSIT Verified 05/31/17 17:32 IVITY Travel Screening - Travel/Exposure Within Last 30 Days Have you traveled within the last 30 days?: No - Travel Symptoms Symptom Screening: None Review of Systems Constitutional: Denies: Chills, Fever Eyes: Denies: Eye discharge ENT: Denies: Congestion Respiratory: Denies: Cough, Dyspnea Past Medical History - SOCIAL HISTORY Smoking Status: Current every day smoker Alcohol Use: Heavy - RESPIRATORY Hx Respiratory Disorders: No - CARDIOVASCULAR Hx Cardio Disorders: Yes Hx Deep Vein Thrombosis: Yes Hx Hypertension: Yes Comment:: vasculitis, ttp coma for 2 weeks - NEURO Hx Neuro Disorders: Yes Comment:: "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" - GI Hx GI Disorders: No - Hx Genitourinary Disorders: No - ENDOCRINE Hx Endocrine Disorders: No Hx Diabetes: No Hx Thyroid Disease: No - MUSCULOSKELETAL Hx Musculoskeletal Disorders: Yes Hx Arthritis: Yes Comment:: DDD, neuropathy - PSYCH Hx Psych Problems: Yes Hx Anxiety: Yes - HEMATOLOGY/ONCOLOGY Hx Hematology/Oncology Disorders: No Family Medical History Any Significant Family History?: Yes Hx Heart Disease: Father, Brother/Sister Physical Exam - General General Appearance: Alert, Oriented x3, Cooperative, No acute distress - Head Head exam: Atraumatic, Normocephalic, Normal inspection - Eye Eye exam: Normal appearance, PERRL, EOMI - ENT Throat exam: Normal inspection. negative: Tonsillar erythema, Tonsillar exudate - Neck Neck exam: Normal inspection, Full ROM. negative: Tenderness - Respiratory Respiratory exam: Normal lung sounds bilaterally. negative: Respiratory distress - Cardiovascular Cardiovascular Exam: Regular rate, Normal rhythm, Normal heart sounds - GI/Abdominal GI/Abdominal exam: Soft, Normal bowel sounds. negative: Tenderness - Extremities Extremities exam: Normal inspection, Full ROM, Normal capillary refill. negative: Tenderness - Neurological Neurological exam: Alert, Normal gait, Oriented X3. negative: Abnormal gait, Altered, Motor sensory deficit - Psychiatric Psychiatric exam: negative: Anxious, Depressed, Flat affect, Homicidal ideation , Suicidal ideation Course Vital Signs 04/17/18 01:07 Temperature 98.0 F Pulse Rate 95 H Respiratory 16 Rate Blood Pressure 111/67 Pulse Ox 96 - Reevaluation(s) Reevaluation #1: The patient continues to do well in the ED. She has had no respiratory depression or JOSHUA. She continues to converse normally with no slurred speech or confusion. The patient has already indicated she would like to leave AMA. I explained to her that I would require a minimum of 1 hour of observation in the ED first. I did explain to her that by leaving the Narcan could wear off and she could stop breathing and . The patient presently appears very competent to make an informed medical decision and has proper decision making capacity. She understands and accepts the risks of leaving AMA. 04/17/18 01:38 Reevaluation #2: The patient is doing very well at this time. She is answering all questions appropriately with no slurred speech or any difficulties. I did explain to her that we would like to admit her to the hospital for a short stay admission but she is refusing. She again states she would like to leave. She also has persistently complained of rib pain that she states has been present since falling 2 months ago. I offered to do a chest CT like she had last May but she also is refusing that. She is instructed to see her PCP for recheck and to also have her anemia evaluated further. At this time the patient's gait is normal and steady and she is exhibiting no signs of any acute intoxication. 04/17/18 02:05 04/17/18 02:09 Medical Decision Making - Lab Data Result diagrams: 04/17/18 01:10 04/17/18 01:10 Disposition Disposition: Discharge Clinical Impression: Chronic pain Qualifiers: Chronic pain type: other chronic pain Qualified Code(s): G89.29 - Other chronic pain Disposition: Against Medical Advice Condition: (2) Stable Instructions: Opioid Overdose (ED) Additional Instructions: Please stop using illegal drugs or taking to many prescription drugs. Please see your family doctor for recheck next week. Return to the ER for any worsening symptoms. Forms: Patient Portal Access Time of Disposition: 02:04 Quality - Quality Measures Quality Measures: N/A - Blood Pressure Screening View Details: Yes Does Patient Have Any of the Following: No Blood Pressure Classification: Normal BP Reading Systolic Measurement: 111 Diastolic Measurement: 67 Screening for High Blood Pressure: < Normal BP, F/U Not Required > [G8724]
[2018-04-17] MEDS ORDERED: 0.9 % SODIUM CHLORIDE 1,000 ML BAG IV ONE (01:25)
[2018-04-17 01:36] LABS: BILIRUBIN,TOTAL < 0.20 mg/dL (0.2-1.0); BLOOD UREA NITROGEN 11 mg/dL (6-20); CREATININE 0.7 mg/dL (0.5-0.9); EST GLOMERULAR FILTRATION RATE > 60 mL/min; TOTAL PROTEIN 6.5 g/dL (6.6-8.7)
[2018-04-17 01:38] LABS: GLUCOSE,RANDOM 102 mg/dL (74-109)
[2018-04-17 01:41] LABS: ALB/GLOB RATIO 1.4 (1.1-1.8); ALBUMIN 3.8 g/dL (4.0-5.0); ALKALINE PHOSPHATASE 60 U/L (35-104); ALT/SGPT 16 U/L (<33); AST/SGOT 19 U/L (10.0-35.0)
[2018-04-17 01:49] LABS: PLATELET ESTIMATE NORMAL (NORMAL)
--- NOTE | 2018-04-19 13:25 | RADIOLOGY REPORT ---
EXAM: PORTABLE SINGLE VIEW OF THE CHEST HISTORY: LOW LEFT RIB PAIN. PATIENT FOUND NOT BREATHING. TECHNIQUE: A portable single view of the chest was obtained. Comparison: CT of the thorax 05/31/17. FINDINGS: Frontal view of the chest taken with portable technique and upright position shows a small patch of opacity in the left lung base. The cardiomediastinal silhouette is within normal limits. No pleural effusion or pneumothorax. There is slight deformity of the right anterior ribs, possibly, consistent with not healed fractures in the interim. IMPRESSION: THE OPACITY IN THE LEFT LUNG BASE MAY BE AIR SPACE DISEASE OR A DEVELOPING NODULE. RECOMMEND FOLLOW-UP RADIOGRAPHS IN TWO TO FOUR WEEKS AND IF NOT CLEARING, A CT SCAN OF THE CHEST IS RECOMMENDED. JOB NUMBER: [id number] MTDD
== END 2018-04-17 02:14 | disposition left against medical advice (07) ==
LOC: ER 01:04
DX: T65.91XA Toxic effect of unspecified substance, accidental (unintentional), initial encounter (principal); G89.29 Other chronic pain; I10 Essential (primary) hypertension; F17.210 Nicotine dependence, cigarettes, uncomplicated; Y92.009 Unspecified place in unspecified non-institutional (private) residence as the place of occurrence of the external cause
CPT/HCPCS: 71045; 80053; 85027; 93005; 93010; 96360; 99284; J7030